=== PATIENT | female | born 1945 | race Caucasian/White ===

== ENCOUNTER 2016-11-18 06:55 | Day surgery (SDC) | payer MEDICARE, OTHER ==
[~2016-11-18 06:55] MED LIST: CLINDAMYCIN PHOSPHATE 600 MG in DEXTROSE 5 % IN WATER 100 ML IV PRN; RINGERS SOLUTION,LACTATED 1,000 ML IV PRN
--- OUTSIDE RECORDS SUMMARY | 2016-11-18 06:59 | XMS REPORT | Continuity of Care Document ---
:1945 Author Organization [facility] ([facility]) Address [address] [place] [address] Phone [phone] Care Team Providers Name Role Phone Loco De Guzman Primary Care Provider [phone] Source Comments This disclosure is being made pursuant to the Care Everywhere program, applicable federal and state laws, and may not contain all informaitonavailable regarding this patient.[facility] ([facility]) Active Allergies and Adverse Reactions Allergen Noted Date Severity Reactions Comments Penicillin 01/02/2015 Rash Sulfa (Sulfonamide Antibiotics) 01/02/2015 Respiratory Distress Current Medications Prescription Sig. Disp. Refills Start Date End Date Status ATENOLOL 25 mg tablet 25 mg daily 10/17/2014 Active ISOSORBIDE MONONITRATE 60 60 mg daily 12/14/2014 Active mg CR tablet LOSARTAN 50 mg tablet 50 mg daily 12/14/2014 Active meloxicam 7.5 mg tablet Take 7.5 mg by Active mouth daily aspirin 81 mg EC tablet Take 81 mg by Active mouth daily hydrochlorothiazide 12.5 mg Take 12.5 mg by Active tablet mouth daily levothyroxine 75 mcg tablet Take 75 mcg by Active mouth every morning before breakfast HYDROCHLOROTHIAZIDE 12.5 mg 02/16/2015 Active capsule Active Problems Problem Noted Date Primary osteoarthritis of first carpometacarpal joint of left hand 04/10/2015 Pain in joint involving hand 01/08/2015 Social History Tobacco Use Types Packs/Day Years Used Date Never Smoker Smokeless Tobacco: Never Used Tobacco Cessation:Counseling Given: Yes Comments: Last Filed Vital Signs Vital Sign Reading Time Taken Blood Pressure 106/68 01/02/2015 2:08 PM CDT Pulse 72 01/02/2015 2:08 PM CDT Temperature 36.4 C (97.5 F) 01/02/2015 2:08 PM CDT Respiratory Rate - - Height 1.499 m (4' 11") 01/02/2015 2:08 PM CDT Weight 92.579 kg (204 lb 1.6 oz) 01/02/2015 2:08 PM CDT Body Mass Index 41.2 01/02/2015 2:08 PM CDT Oxygen Saturation - - Plan of Care Health Maintenance Due Date Last Done Comments Hepatitis B Vaccine (1 of 3 - Primary Series) 1945 Tdap Vaccine 1954 Lipid Disorder Screening 1961 Td Vaccine 1961 Mammogram 1983 Colonoscopy 07/22/1993 Zoster Vaccine 2003 Osteoporosis Screening (DXA Bone Density) 2008 Pneumococcal Vaccine (1 of 2 - PCV13) 2008 Influenza Vaccine: Seasonal (Season Ended) 2017 Results from Last 3 Months Not on file
--- OUTSIDE RECORDS SUMMARY | 2016-11-18 06:59 | XMS REPORT | Continuity of Care Document ---
:1945 Author Organization [facility] [place] [address] Care Team Providers Name Role Phone Loco De Guzman Primary Care Provider [phone] Source Comments This disclosure is being made pursuant to the Dr. Z program and maynot contain all information available regarding this patient.[facility] Active Allergies and Adverse Reactions Not on File Current Medications Be aware that medications may not be up to date as of this document. Alwaysverify current medications with the patient. Prescription Sig. Disp. Refills Start Date End Date Status losartan (COZAAR) 50 MG TAKE ONE TABLET 30 tablet 2 10/28/2016 Active tablet BY MOUTH ONCE DAILY Active Problems Not on file Most Recent Encounters Date Type Specialty Providers Description 10/28/2016 Refill Family Medicine Loco De Guzman MD Social History Tobacco Use Types Packs/Day Years Used Date Never Assessed Plan of Care Health Maintenance Due Date Last Done Comments Tetanus/Pertussis (1 - Tdap) 1962 Colonoscopy 1993 Mammogram 1993 Well Adult Visit 1993 Zoster Vaccine 60+ 2003 Bone Density 2008 Pneumococcal Low/Medium Risk 65+ (1 of 2 - PCV13) 2008 Influenza Immunization (#1) 2016 Results from Last 3 Months Not on file
[2016-11-18] MEDS ORDERED: RINGERS SOLUTION,LACTATED 1,000 ML IV ONE ×2 (07:35→10:47)
[2016-11-18] MEDS ORDERED: LIDOCAINE HCL 50 ML VIAL IJ ONE (08:10)
[2016-11-18] MEDS ORDERED: BUPIVACAINE HCL 50 ML VIAL IJ ONE (08:10)
[2016-11-18] MEDS ORDERED: oxyCODONE HCL/ACETAMINOPHEN 1 TAB TABLET PO PRN (12:58)
[2016-11-18 13:49] VITALS: BP 125/63
== END 2016-11-18 06:56 | disposition home or self-care (01) ==
LOC: AMB 06:55
PROVIDERS: ATTEND Student in an Organized Health Care Education/Training Program
PROC: 0QBR0ZZ Excision of Left Toe Phalanx, Open Approach (ICD-10-PCS; 2016-11-18)
PROC: 0QBQ0ZZ Excision of Right Toe Phalanx, Open Approach (ICD-10-PCS; 2016-11-18)
PROC: 0QBP0ZZ Excision of Left Metatarsal, Open Approach (ICD-10-PCS; 2016-11-18)
PROC: 0QBN0ZZ Excision of Right Metatarsal, Open Approach (ICD-10-PCS; 2016-11-18)
PROC: 0QSP04Z Reposition Left Metatarsal with Internal Fixation Device, Open Approach (ICD-10-PCS; 2016-11-18)
PROC: 0QSN04Z Reposition Right Metatarsal with Internal Fixation Device, Open Approach (ICD-10-PCS; 2016-11-18)
PROC: 0QSR04Z Reposition Left Toe Phalanx with Internal Fixation Device, Open Approach (ICD-10-PCS; 2016-11-18)
PROC: 0QSQ04Z Reposition Right Toe Phalanx with Internal Fixation Device, Open Approach (ICD-10-PCS; 2016-11-18)
PROC: 0Y6Y0Z0 Detachment at Left 5th Toe, Complete, Open Approach (ICD-10-PCS; principal; 2016-11-18 08:00)
PROC: 0LNW3ZZ Release Left Foot Tendon, Percutaneous Approach (ICD-10-PCS; 2016-11-18 08:00)
DX: M20.31 Hallux varus (acquired), right foot (principal); M20.32 Hallux varus (acquired), left foot; M20.42 Other hammer toe(s) (acquired), left foot; I10 Essential (primary) hypertension; I25.10 Atherosclerotic heart disease of native coronary artery without angina pectoris; M13.80 Other specified arthritis, unspecified site; K58.9 Irritable bowel syndrome, unspecified; Z87.891 Personal history of nicotine dependence; Z68.41 Body mass index [BMI] 40.0-44.9, adult

== ENCOUNTER 2017-02-24 08:21 | Day surgery (SDC) | payer MEDICARE, OTHER ==
[~2017-02-24 08:21] MED LIST changes: +RINGER'S SOLUTION,LACTATED 1,000 ML IV PRN; -RINGERS SOLUTION,LACTATED 1,000 ML IV PRN
[2017-02-24] MEDS ORDERED: LIDOCAINE HCL 50 ML VIAL IJ ONE (09:35)
[2017-02-24] MEDS ORDERED: BUPIVACAINE HCL 50 ML VIAL IJ ONE (09:35)
[2017-02-24] MEDS ORDERED: oxyCODONE HCL/ACETAMINOPHEN 1 TAB TABLET PO PRN (11:21)
[2017-02-24 12:13] VITALS: BP 115/47
== END 2017-02-24 08:22 | disposition home or self-care (01) ==
LOC: AMB 08:21
PROVIDERS: ATTEND Student in an Organized Health Care Education/Training Program
PROC: 0SPN04Z Removal of Internal Fixation Device from Left Metatarsal-Phalangeal Joint, Open Approach (ICD-10-PCS; principal; 2017-02-24 08:30)
DX: T84.84XA Pain due to internal orthopedic prosthetic devices, implants and grafts, initial encounter (principal); I10 Essential (primary) hypertension; I25.10 Atherosclerotic heart disease of native coronary artery without angina pectoris; Z87.891 Personal history of nicotine dependence; Z68.41 Body mass index [BMI] 40.0-44.9, adult